=== PATIENT | male | born 1950 | race Caucasian/White ===

== ENCOUNTER 2019-12-31 05:08 | Inpatient (IN) | payer MEDICARE, OTHER ==
[2019-12-31 05:32] LABS: #Basophils 0.1 thou/uL (0.0-0.2); #Eosinphils 0.1 thou/uL (0.0-0.7); #Lymphocytes 2.8 thou/uL (1.20-3.40); #Monocytes 0.4 thou/uL (0.11-0.59); #Neutrophils 4.6 thou/uL (1.40-6.50); %Basophils 1.3 % (0.0-1.0); %Eosinophils 1.5 % (0.0-10.0); %Lymphocytes 34.5 % (21.0-51.0); %Monocytes 5.2 % (0.0-10.0); %Neutrophils 57.5 % (42.0-75.0); Hemoglobin 15.4 g/dL (14.0-18.0); Mean Corpuscular HGB CONC 34.2 g/dL (32.0-36.0); Mean Corpuscular Hemoglobin 31.8 pg (27.0-31.0); Mean Platelet Volume 7.6 fL (7.4-10.4); Platelet Count 200 thou/uL (130-400); RBC Distribution Width 11.9 % (11.5-14.5); Red Blood Cell (RBC) Count 4.86 mill/uL (4.70-6.10); White Blood Cell (WBC) Count 8.1 thou/uL (4.8-10.8)
[2019-12-31 05:57] LABS: ALT (SGPT) 32 U/L (8-55); AST (SGOT) 27 U/L (5-34); Alkaline Phosphatase 51 U/L (40-110); Anion Gap 14 mmol/L (10-20); BUN (Urea Nitrogen) 9 mg/dL (8.4-25.7); Bilirubin, Total 0.5 mg/dL (0.2-1.2); Calc. Creatinine Clearance 0 mL/min (70-130); Calcium 8.9 mg/dL (7.8-10.44); Carbon Dioxide 22 mmol/L (23-31); Chloride 107 mmol/L (98-107); Estimated GFR-MDRD 71; Globulin 2.5 g/dL (2.4-3.5); Glucose 118 mg/dL (80-115); Potassium 4.1 mmol/L (3.5-5.1); Protein, Total 6.5 g/dL (5.8-8.1); Sodium 139 mmol/L (136-145)
[2019-12-31] MEDS ORDERED: PROPOFOL 20 ML ONE (06:10)
[2019-12-31] MEDS ORDERED: Bacitracin 1 PK ONE (06:46)
[2019-12-31 07:18] LABS: Magnesium 2.1 mg/dL (1.6-2.6); Phosphorus 3.5 mg/dL (2.3-4.7)
[2019-12-31 07:25] LABS: Lactic Acid 2.1 mmol/L (0.5-2.2)
[2019-12-31] MEDS ORDERED: Acetaminophen 325 MG TAB PO PRN (07:25)
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
[2019-12-31 07:47] LABS: Bilirubin Negative (Negative); Blood, Urine Negative (Negative); Clarity Clear (Clear); Glucose, Urine (Dipstick) Normal (Negative); Ketone, Urine Negative (Negative); Leukocyte Negative Leu/uL (Negative); Nitrite Negative (Negative); Protein, Urine (Dipstick) Negative (Neg-Trace); Urobilinogen Normal mg/dL (Less than 2); pH, Urine 7.5 (5.0-9.0)
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
[2019-12-31 08:05] LABS: Specific Gravity, Urine 1.045 (1.002-1.036)
[2019-12-31 08:06] LABS: Amphetamine Not Detected (NotDetected); Barbiturates Screen Not Detected (NotDetected); Benzodiazepine Screen Not Detected (NotDetected); Cocaine Metabolite Screen Not Detected (NotDetected); Medtox Control Line Valid? VALID (VALID); Medtox Reader # READER 4; Methadone Not Detected (NotDetected); Methamphetamine Not Detected (NotDetected); Opiate Screen Not Detected (NotDetected); Oxycodone Screen Not Detected (NotDetected); Phencyclidine (PCP) Not Detected (NotDetected); THC/Cannabinoid Screen Not Detected (NotDetected); Tricyclic Screen Not Detected (NotDetected)
[2019-12-31] MEDS ORDERED: Ondansetron PF 4 MG/2 ML Vial IVP PRN (08:22)
[2019-12-31] MEDS ORDERED: Dextrose 50% Abboject 50 ML SYRINGE SLOW IVP PRN (08:22)
[2019-12-31] MEDS ORDERED: Dextrose 5% in Water 1,000 ML IV PRN (08:22)
[2019-12-31] MEDS ORDERED: traMADol HCl 50 MG TAB PO PRN ×2 (08:29)
[2019-12-31] MEDS ORDERED: Sodium Chloride 0.9% 1,000 ML IV SCH (08:30)
[2019-12-31] MEDS ORDERED: Iopamidol-370 76% 500 ML 1 ML ONE (09:28)
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
[2019-12-31] MEDS ORDERED: Ketorolac Tromethamine 30 MG/ML VIAL ONE (10:38)
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
[2019-12-31] MEDS: Acetaminophen 325 MG TAB PO SCH ×3 (15:18→22:33)
[2019-12-31 17:48] LABS: SARS-CoV-2 MS2 Positive; SARS-CoV-2 N Gene Negative; SARS-CoV-2 S Gene Negative; SARS-CoV-2 by NAA Not Detected (NotDetected); SARS-CoV-2 orf1ab Negative
[2019-12-31 18:18] VITALS: BMI 28.5
[2019-12-31] MEDS: Atorvastatin Calcium 40 MG TAB PO SCH (20:43)
[2019-12-31] MEDS ORDERED: COCONUT OIL 1000 MG PO SCH (21:00)
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
[2019-12-31] MEDS: Artificial Tear Sol 15 ML BOT EA EYE PRN (21:39)
[2019-12-31] MEDS: Calcium Carbonate 500 MG ChewTAB PO PRN (21:40)
[2019-12-31] MEDS: Gabapentin 100 MG CAP PO SCH (22:33)
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
[2020-01-01] MEDS: Acetaminophen 325 MG TAB PO SCH ×4 (02:41→20:16)
[2020-01-01 05:09] LABS: #Monocytes 0.8 thou/uL (0.11-0.59); %Basophils 0.5 % (0.0-1.0); %Eosinophils 0.4 % (0.0-10.0); %Lymphocytes 25.7 % (21.0-51.0); %Neutrophils 63.4 % (42.0-75.0); Hemoglobin 14.2 g/dL (14.0-18.0); Mean Corpuscular HGB CONC 33.9 g/dL (32.0-36.0); Mean Corpuscular Hemoglobin 31.8 pg (27.0-31.0); Mean Corpuscular Volume 93.6 fL (78.0-98.0); Mean Platelet Volume 7.6 fL (7.4-10.4); Platelet Count 193 thou/uL (130-400); RBC Distribution Width 11.9 % (11.5-14.5); Red Blood Cell (RBC) Count 4.47 mill/uL (4.70-6.10); White Blood Cell (WBC) Count 7.8 thou/uL (4.8-10.8)
[2020-01-01 05:15] LABS: INR-International Normal Ratio 1.1; PTT 28.9 sec (22.9-36.1); Prothrombin Time 14.2 sec (12.0-14.7)
[2020-01-01 05:31] LABS: Anion Gap 12 mmol/L (10-20); BUN (Urea Nitrogen) 10 mg/dL (8.4-25.7); Calc. Creatinine Clearance 113 mL/min (70-130); Calcium 8.6 mg/dL (7.8-10.44); Carbon Dioxide 22 mmol/L (23-31); Chloride 108 mmol/L (98-107); Estimated GFR-MDRD Greater than 90; Glucose 122 mg/dL (80-115); Magnesium 1.9 mg/dL (1.6-2.6); Phosphorus 3.3 mg/dL (2.3-4.7); Potassium 3.8 mmol/L (3.5-5.1); Sodium 138 mmol/L (136-145)
[2020-01-01] MEDS: Artificial Tear Sol 15 ML BOT EA EYE PRN ×2 (07:22→19:09)
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
--- NOTE | 2020-01-01 07:55 | RAD ---
Chest AP view INDICATION: History of rib fracture COMPARISON: December 31, 2019 FINDINGS: Lungs: The lungs are clear Cardiac silhouette: Mild cardiomegaly. Pulmonary vasculature: Normal Pleural spaces: No pleural effusion or pneumothorax is demonstrated. Upper abdomen: No abnormality seen. Osseous structures: Known posterior left rib fractures are not as well detailed on the current exami nation as on the CT the chest, abdomen and pelvis dated December 31, 2019. Additional findings: None. IMPRESSION: No acute cardiopulmonary abnormality.
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
[2020-01-01] MEDS ORDERED: Cyanocobalamin (Vitamin B-12) 1,000 MCG TAB PO SCH (09:00)
[2020-01-01] MEDS ORDERED: Atorvastatin Calcium 40 MG TAB PO SCH (09:00)
[2020-01-01] MEDS: Gabapentin 100 MG CAP PO SCH ×3 (09:36→20:16)
[2020-01-01] MEDS ORDERED: Scopolamine 1.5 mg/72 hour Patch TD SCH (13:00)
[2020-01-01] MEDS: Calcium Carbonate 500 MG ChewTAB PO PRN ×2 (14:03→20:18)
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
[2020-01-01] MEDS: Atorvastatin Calcium 40 MG TAB PO SCH (20:16)
[2020-01-02] MEDS: Acetaminophen 325 MG TAB PO SCH ×2 (02:11→08:07)
[2020-01-02] MEDS: Calcium Carbonate 500 MG ChewTAB PO PRN ×2 (02:11→06:21)
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
[2020-01-02] MEDS: Gabapentin 100 MG CAP PO SCH (08:07)
[2020-01-02] MEDS ORDERED: Enoxaparin Sodium 40 MG/0.4 ML SYRINGE SC SCH (09:00)
[2020-01-02] MEDS ORDERED: Calcium Carbonate 500 MG ChewTAB PO PRN (10:22)
[2020-01-02 12:22] VITALS: BP 145/88; TEMP 98.2
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
== END 2020-01-02 12:16 | disposition home or self-care (01) | DRG 86 ==
LOC: ERS 05:08 → SURG A 08:36
PROVIDERS: ADMIT Surgery; ATTEND Surgery
PROC: 0RSLXZZ Reposition Right Elbow Joint, External Approach (ICD-10-PCS; principal; 2019-12-31)
DX: S06.6X0A Traumatic subarachnoid hemorrhage without loss of consciousness, initial encounter (principal); S22.42XA Multiple fractures of ribs, left side, initial encounter for closed fracture; K21.9 Gastro-esophageal reflux disease without esophagitis; R40.2412 Glasgow coma scale score 13-15, at arrival to emergency department; Z20.828 Contact with and (suspected) exposure to other viral communicable diseases; S53.124A Posterior dislocation of right ulnohumeral joint, initial encounter; E78.00 Pure hypercholesterolemia, unspecified; Z90.49 Acquired absence of other specified parts of digestive tract; Z85.51 Personal history of malignant neoplasm of bladder; Z88.8 Allergy status to other drugs, medicaments and biological substances; V89.2XXA Person injured in unspecified motor-vehicle accident, traffic, initial encounter
CPT/HCPCS: 24600; 36415; 70450; 71045; 71260; 72125; 74177; 80048; 80053; 80306; 80307; 81003; 83605; 83735; 84100; 85025; 85610; 85730; 87635; 96361; 96374; 99156; G0390; J1885; J2704; Q9967; U0003